=== PATIENT | female | born 1955 | race Caucasian/White ===

== ENCOUNTER 2016-12-20 21:04 | Emergency (ER) | payer OTHER ==
[~2016-12-20] VITALS: Ht 154.9 cm; Wt 68.1 kg
[2016-12-20] MEDS ORDERED: ATOR1TAB19 PO (21:23)
[2016-12-20] MEDS ORDERED: NEUR800T PO (21:23)
[2016-12-20] MEDS ORDERED: EVIS1TAB PO (21:23)
[2016-12-20] MEDS ORDERED: LEVO75TA4 PO (21:23)
[2016-12-20] MEDS ORDERED: CYCL10TA PO (21:23)
[2016-12-20] MEDS ORDERED: CYMB60CA3 PO (21:23)
[2016-12-20] MEDS ORDERED: NORCO, ANEXSIA 5/325MG TABLET (HYDROcodone/ACETAMINOPHEN) PO ONE (22:00)
[2016-12-20] MEDS ORDERED: diphenhydrAMINE 50 MG CAP PO ONE (22:00)
[2016-12-20 23:23] VITALS: BP 131/61
--- NOTE | 2016-12-21 08:10 | REP ---
RIGHT HUMERUS, THREE VIEWS: HISTORY: Injury. There is no acute fracture or dislocation. The joint spaces are normal in appearance. IMPRESSION: There is no acute fracture or dislocation. Signed by Madhu Weston MD 12/21/2016 08:17 A
--- NOTE | 2016-12-21 08:11 | REP ---
RIGHT HAND, TWO VIEWS: HISTORY: Injury. There is no acute fracture or dislocation. The joint spaces are normal in appearance. IMPRESSION: There is no acute fracture or dislocation. Signed by Madhu Weston MD 12/21/2016 08:17 A
--- NOTE | 2016-12-21 08:12 | REP ---
RIGHT FOREARM, FOUR VIEWS: HISTORY: Injury. There is no acute fracture or dislocation. The joint spaces are normal in appearance. An ossified density is present adjacent to the ulnar styloid process. This represents ligamentous or tendon calcification or an old avulsion fracture fragment. IMPRESSION: There is no acute fracture or dislocation. Signed by Madhu Weston MD 12/21/2016 08:17 A
== END 2016-12-20 23:24 | disposition home or self-care (01) ==
LOC: M ED 21:04
DX: S50.01XA Contusion of right elbow, initial encounter (principal); S60.211A Contusion of right wrist, initial encounter; W19.XXXA Unspecified fall, initial encounter; Y92.099 Unspecified place in other non-institutional residence as the place of occurrence of the external cause; Y93.89 Activity, other specified; Y99.9 Unspecified external cause status